=== PATIENT | female | born 1975 | race Two or more races ===

== ENCOUNTER 2023-10-14 13:19 | Inpatient (IN) | payer MEDICAID ==
[~2023-10-14] VITALS: Ht 149.9 cm; Wt 64.0 kg
[2023-10-14] MEDS ORDERED: CT SWABBABLE VALVE TRANS SET 1 EA INFUS.SET MC ONE (13:54)
[2023-10-14] MEDS ORDERED: IV NS 0.9% 250 ML IV ONE (13:54)
[2023-10-14] MEDS ORDERED: IOHEXOL-350 100 ML VIAL IV ONE (13:54)
[2023-10-14 14:01] LABS: BASOPHILS % (AUTO) 0.6 % (0.0-2.0); EOSINOPHILS % (AUTO) 0.6 % (0.0-6.0); HEMATOCRIT 43 % (33-45); HEMOGLOBIN 14.2 g/dL (11.5-14.8); LYMPHOCYTES # (AUTO) 2.7 K/uL (0.8-4.8); LYMPHOCYTES % (AUTO) 35.3 % (20.0-44.0); MEAN CORPUSCULAR HEMOGLOBIN 29 PG (26.0-33.0); MEAN CORPUSCULAR HGB CONC 33 g/dl (31.0-36.0); MEAN CORPUSCULAR VOLUME 88 fL (82-100); MONOCYTES # (AUTO) 0.4 K/uL (0.1-1.30); MONOCYTES % (AUTO) 5.5 % (2.0-12.0); NEUTROPHILS # (AUTO) 4.4 K/uL (1.8-8.9); PLATELET COUNT (AUTO) 240 K/uL (150-450); RED BLOOD CELL COUNT(AUTO) 4.84 MIL/uL (4.0-5.2); RED CELL DISTRIBUTION WIDTH 13.3 % (11.5-15.0); WHITE BLOOD COUNT (AUTO) 7.5 K/uL (4.3-11.0)
[2023-10-14 14:09] LABS: CALCIUM, SERUM 8.8 mg/dL (8.5-10.1); CARBON DIOXIDE 27 mmol/L (21-32); CHLORIDE 103 mmol/L (98-107); CREATININE 0.6 mg/dL (0.6-1.3); GLUCOSE 98 mg/dL (74-106); POTASSIUM 3.3 mmol/L (3.5-5.1); SODIUM SERUM 139 mmol/L (136-145); UREA NITROGEN, BLOOD 11 mg/dL (7-18)
[2023-10-14 14:24] LABS: INR 1.02 (0.91-1.10); PARTIAL THROMBOPLASTIN TIME 27.7 SEC (24.3-34.3); PROTHROMBIN TIME 10.8 SECS (9.2-11.1)
[2023-10-14] MEDS ORDERED: ASPIRIN 325 MG TABLET PO ONE (15:30)
[2023-10-14] MEDS ORDERED: ACETAMINOPHEN 325 MG TABLET PO PRN (16:00)
[2023-10-14] MEDS ORDERED: MAG HYDROX/AL HYDROX/SIMETH 30 ML UDC PO PRN (16:00)
[2023-10-14] MEDS ORDERED: ONDANSETRON HCL/PF 4 MG/2 ML VIAL IVP PRN (16:00)
[2023-10-14] MEDS ORDERED: Z GUARD REMEDY 4 OZ OINT TP PRN (16:00)
[2023-10-14] MEDS ORDERED: MAGNESIUM HYDROXIDE 30 ML UDC PO PRN (16:00)
[2023-10-14] MEDS ORDERED: POTASSIUM CHLORIDE 20 MEQ TAB.PRT.SR PO ONE ×2 (16:00→16:08)
[2023-10-14] MEDS ORDERED: ZOLPIDEM TARTRATE 5 MG TABLET PO PRN (16:00)
[2023-10-14] MEDS ORDERED: ASPIRIN 325 MG TABLET ONE (16:01)
[2023-10-14 16:41] LABS: CALCIUM, SERUM 8.9 mg/dL (8.5-10.1); CREATININE 0.7 mg/dL (0.6-1.3)
[2023-10-14 16:46] LABS: ALBUMIN 3.8 g/dL (3.4-5.0); BILIRUBIN,TOTAL 0.4 mg/dL (0.2-1.0); TOTAL PROTEIN, SERUM 8.1 g/dL (6.4-8.2)
[2023-10-14 17:00] VITALS: BP 136/82; TEMP 97.7; O2SAT 100
[2023-10-14 17:11] LABS: THYROID STIMULATING HORMONE 1.806 uIU/mL (0.358-3.74)
[2023-10-14 17:26] LABS: CHOLESTEROL 199 mg/dL (<200); HDL CHOLESTEROL 58 mg/dL (40-60); LDL 115 mg/dL (0-99); TRIGLYCERIDES 83 mg/dL (30-150)
[2023-10-14] MEDS: BLOOD SUGAR DIAGNOSTIC 1 EACH STRIP IN SCH ×4 (17:44→23:46)
[2023-10-14 20:00] VITALS: BP 139/78; TEMP 97.9; O2SAT 99
[2023-10-14] MEDS ORDERED: VALPROATE 500 MG in IV D5W 100 ML IV ONE ×4 (21:00)
[2023-10-14] MEDS: VALACYCLOVIR HCL 500 MG TABLET PO SCH (21:00)
[2023-10-14] MEDS ORDERED: Magnesium 1 GM/2 ML VIAL IV ONE (21:00)
[2023-10-14] MEDS ORDERED: VALPROATE 500 MG in IV D5W 100 ML IV SCH (21:00)
[2023-10-14] MEDS: Magnesium 1GM/D5W 100ML PREMIX 100 ML IV SCH ×2 (21:18→22:18)
[2023-10-15] VITALS (7 sets, daily range): BP systolic 108–120; BP diastolic 70–81; TEMP 97.3–98.4; O2SAT 97–98
[2023-10-15] MEDS: BLOOD SUGAR DIAGNOSTIC 1 EACH STRIP IN SCH ×7 (05:56→21:09)
[2023-10-15] MEDS: VALACYCLOVIR HCL 500 MG TABLET PO SCH ×2 (07:07→21:02)
[2023-10-15 07:11] LABS: AMPHETAMINE, URINE NEGATIVE (NEGATIVE); APPEARANCE,URINE SLIGHTLY CLOUDY (CLEAR); BARBITURATE, URINE NEGATIVE (NEGATIVE); BENZODIAZEPINE, URINE NEGATIVE (NEGATIVE); BILIRUBIN,URINE NEGATIVE (NEGATIVE); BLOOD, URINE TRACE-INTA Ery/uL (NEGATIVE); CANNABINOID, URINE NEGATIVE (NEGATIVE); COCCAINE, URINE NEGATIVE (NEGATIVE); COLOR,URINE YELLOW (YELLOW); KETONES,URINE TRACE mg/dL (NEGATIVE); LEUKOCYTE ESTERASE ,URINE NEGATIVE (NEGATIVE); NITRITE, URINE NEGATIVE (NEGATIVE); OPIATE, URINE NEGATIVE (NEGATIVE); PHENCYCLIDINE SCREEN,URINE NEGATIVE (NEGATIVE); PROTEIN,URINE NEGATIVE (NEGATIVE); UGLUCOSE NEGATIVE (NEGATIVE); UROBILINOGEN,URINE 0.2 EU/dL (0.2)
[2023-10-15 07:11] LABS: BASOPHILS % (AUTO) 0.8 % (0.0-2.0); EOSINOPHILS # (AUTO) 0.1 K/uL (0.0-0.7); EOSINOPHILS % (AUTO) 1.3 % (0.0-6.0); HEMATOCRIT 41 % (33-45); HEMOGLOBIN 13.8 g/dL (11.5-14.8); LYMPHOCYTES # (AUTO) 2.3 K/uL (0.8-4.8); LYMPHOCYTES % (AUTO) 41.9 % (20.0-44.0); MEAN CORPUSCULAR HEMOGLOBIN 29 PG (26.0-33.0); MEAN CORPUSCULAR HGB CONC 34 g/dl (31.0-36.0); MEAN CORPUSCULAR VOLUME 88 fL (82-100); MONOCYTES # (AUTO) 0.4 K/uL (0.1-1.30); MONOCYTES % (AUTO) 7.1 % (2.0-12.0); NEUTROPHILS # (AUTO) 2.7 K/uL (1.8-8.9); NEUTROPHILS % (AUTO) 48.9 % (43.0-81.0); PLATELET COUNT (AUTO) 222 K/uL (150-450); RED BLOOD CELL COUNT(AUTO) 4.69 MIL/uL (4.0-5.2); RED CELL DISTRIBUTION WIDTH 13.3 % (11.5-15.0); WHITE BLOOD COUNT (AUTO) 5.5 K/uL (4.3-11.0)
[2023-10-15 07:24] LABS: INR 1.03 (0.91-1.10); PARTIAL THROMBOPLASTIN TIME 29.3 SEC (24.3-34.3); PROTHROMBIN TIME 10.9 SECS (9.2-11.1)
[2023-10-15 07:51] LABS: ADD URINE CULTURE NO; BACTERIA,URINE Rare /HPF (None Seen); RBC,URINE 0-2 /HPF (0-2); SQUAMOUS EPITHELIAL CELL,UR 0-2 /HPF (None Seen); WBC,URINE 0-2 /HPF (0-3)
[2023-10-15] MEDS: ASPIRIN EC 325 MG TABLET.DR PO SCH (08:05)
[2023-10-15 10:08] LABS: CALCIUM, SERUM 8.6 mg/dL (8.5-10.1); CREATININE 0.7 mg/dL (0.6-1.3); MAGNESIUM 2.5 mg/dL (1.8-2.4); PHOSPHORUS 3.8 mg/dL (2.5-4.9)
[2023-10-15 16:51] LABS: CSF GLUCOSE 57 mg/dL (40-70)
[2023-10-15 17:45] LABS: CSF APPEARANCE CLEAR (CLEAR); CSF COLOR COLORLESS (COLORLESS); CSF VOLUME 14.1 mL
[2023-10-15 17:46] LABS: CSF WHITE BLOOD CELL COUNT 2 /cumm (0-5)
[2023-10-16 04:00] VITALS: BP 131/81; TEMP 98.4; O2SAT 97
[2023-10-16 04:07] LABS: RAPID PLASMA REAGIN QUAL. Non Reactive (Non Reactive)
[2023-10-16] MEDS: BLOOD SUGAR DIAGNOSTIC 1 EACH STRIP IN SCH ×2 (06:31→11:25)
[2023-10-16] MEDS: ASPIRIN EC 325 MG TABLET.DR PO SCH (08:24)
[2023-10-16] MEDS: VALACYCLOVIR HCL 500 MG TABLET PO SCH (08:24)
[2023-10-16] MEDS ORDERED: ASPI-1100 PO (08:40)
[2023-10-16] MEDS ORDERED: ATOR10TA PO (08:40)
[2023-10-16] MEDS ORDERED: VALA500T PO (08:40)
[2023-10-16] MEDS ORDERED: ATORVASTATIN 10 MG TABLET PO SCH (09:00)
[2023-10-16 10:00] VITALS: BP 119/78; TEMP 98.1; O2SAT 97
[2023-10-16 11:11] LABS: *ANA ANTI-CENTROMERE B AB <0.2 AI (0.0-0.9); *ANA ANTI-DNA(DS) AB, QN <1 IU/mL (0-9); *ANA ANTI-JO-1 <0.2 AI (0.0-0.9); *ANA ANTICHROMATIN ANTIBODY <0.2 AI (0.0-0.9); *ANA RNP ANTIBODIES <0.2 AI (0.0-0.9); *ANA SJOGREN'S ANTI-SS-A <0.2 AI (0.0-0.9); *ANA SJOGREN'S ANTI-SS-B <0.2 AI (0.0-0.9); *ANAANTI-SCLERODERMA-70 AB <0.2 AI (0.0-0.9); *ANASMITH AB <0.2 AI (0.0-0.9); C-REACTIVE PROTEIN, QUANT 6 mg/L (0-10)
[2023-10-17 05:09] LABS: *HSV 1 DNA PCR Negative (Negative); *HSV 2 DNA PCR Negative (Negative)
[2023-10-17] MEDS ORDERED: ASPIRIN 81 MG TAB.CHEW PO SCH (09:00)
[2023-10-18 06:11] LABS: *HSV 1 DNA PCR CSF Negative (Negative); *HSV 2 DNA PCR CSF Negative (Negative)
[2023-10-22 08:04] LABS: *CRYPTOCOCCUS AG, CSF NEGATIVE
== END 2023-10-16 17:08 | disposition home or self-care (01) | DRG 45 ==
LOC: ER 13:27 → TELE1 15:54 → MEDSG1 10-15 16:40
PROVIDERS: ADMIT Internal Medicine; ATTEND Internal Medicine
PROC: 009U3ZX Drainage of Spinal Canal, Percutaneous Approach, Diagnostic (ICD-10-PCS; principal; 2023-10-15)
DX: I63.9 Cerebral infarction, unspecified (principal); G81.91 Hemiplegia, unspecified affecting right dominant side; R20.0 Anesthesia of skin; R29.700 NIHSS score 0
CPT/HCPCS: 36415; 70450-TC; 70496-TC; 70498-TC; 70551-TC; 80048-TC; 80053-TC; 80061-TC; 81001; 82607-TC; 82962-TC; 83735-TC; 84100-TC; 84439-TC; 84443-TC; 84481; 84484-TC; 85025-TC; 85652-TC; 85730-TC; 86140; 86225; 86235; 86592; 86593; 87899; 89051-TC; 92526; 92611-TC; 97110-TC; 97116-TC; 97530-TC; 97535-TC; G0378; J3475; J3490; J7050; J7060; Q9967